=== PATIENT | female | born 1975 | race Caucasian/White ===

== ENCOUNTER → 2019-07-20 05:38 | Day surgery (SDC) | payer MEDICAID ==
[~2019-07-20] VITALS: Ht 167.6 cm; Wt 111.6 kg
[~2019-07-20 05:38] MED LIST: CELEXA40 MG PO; GLUCOPHAGE500 MG PO; LISINOPRIL2.5 MG PO; LYRICA75 MG PO; PROTONIX40 MG PO; TOPAMAX50 MG PO
[2019-07-20 06:23] LABS: CALC OSMOLALITY 281 mosm/kg (275-300); CALCIUM 9.2 mg/dL (8.5-10.1); CARBON DIOXIDE 27.1 mmol/L (21.0-32.0); CHLORIDE - SERUM 98 mmol/L (98-107); CREATININE - SERUM 0.8 mg/dL (0.6-1.3); HEMATOCRIT 43.8 % (36.0-48.0); HEMOGLOBIN 14.2 g/dL (12-16); MCH 30.7 pg (26.0-34.0); MCHC 32.4 g/dL (31.0-37.0); MCV 94.6 fL (80.0-100.0); MEAN PLATELET VOLUME 10.5 fL (7.4-10.4); RBC 4.63 10x6/uL (4.00-5.40); RDW 12.8 % (11.5-14.5); SODIUM 133 mmol/L (136-145); UREA NITROGEN 10 mg/dL (7-18); WBC 6.9 10x3/uL (4.8-10.8); eGFR NON AFRICAN AMERICAN 82 mL/min (90-120)
[2019-07-20 06:35] LABS: GLUCOSE 412 mg/dL (74-106)
[2019-07-20 06:47] VITALS: BP 114/56; Ht 167.6 cm; Wt 111.6 kg
--- NOTE | 2019-07-20 07:44 | NUR ---
SURGERY CANCELLED DUE TO HYPERGLYCEMIA, IV REMOVED TIP INTACT. AM GLUCOSE 412, A1C 9.6
== END | disposition home or self-care (01) ==
LOC: D.OPS 05:38 → D.PAN 05:38 → D.OPS 07:45 → D.PAN 07:45
PROVIDERS: Anesthesiology; ATTEND Orthopaedic Surgery
DX: M25.361 Other instability, right knee (principal); M76.51 Patellar tendinitis, right knee; Z53.8 Procedure and treatment not carried out for other reasons; R73.9 Hyperglycemia, unspecified